=== PATIENT | female | born 1990 | race Caucasian/White ===

== ENCOUNTER 2018-04-14 23:51 | Inpatient (IN) ==
[2018-04-15] MEDS ORDERED: fentaNYL Citrate Inj 100 MCG/2 ML Ampul IV.PUSH PRN ×2 (00:41)
[2018-04-15] MEDS ORDERED: Sodium Chlor 0.9% Inj 500 ML IV.SIG PRN (00:41)
[2018-04-15] MEDS ORDERED: Sod Chloride 0.9% Inj 1,000 ML IV.CONT PRN (00:41)
[2018-04-15] MEDS ORDERED: Oxytocin 30 Units/500ml Premix 30 UNITS/500 ML BAG IV.SIG ONE (00:41)
[2018-04-15] MEDS ORDERED: Naloxone Inj 0.4 MG/ML Vial IV.PUSH PRN ×2 (00:41→14:17)
[2018-04-15] MEDS ORDERED: Oxytocin 30 Units/500ml Premix 30 UNITS/500 ML BAG IV.CONT PRN ×2 (00:42→14:17)
[2018-04-15] MEDS ORDERED: Citric Acid/Sodium Citrate Liq 30 ML UDC PO SCH (00:45)
--- NOTE | 2018-04-15 00:50 | ED ---
History of Present Illness Primary Care Physician: Eliana Eng MD Subpoena Server Dr. Schultz Chief Complaint: I broke my water History of Present Illness: 27-year-old at 40 weeks today ( EDC 04/15/18 ) presents complaining of ruptured membranes. GBS negative. Seen earlier in triage for contractions. Uneventful to date. Previously scheduled for induction on 04/16. Weeks Gestation:: 40 Para: 0 : 1 - Inpatient Certification I certify that the inpatient services were ordered in accordance with Medicare regulations governing the order. This includes certification that hospital inpatient services are reasonable and necessary and in the case of services not specified as inpatient-only under 42 CFR 419.22(n), that they are appropriately provided as inpatient services in accordance to with the 2-midnight benchmark under 43 CFR 412.3(e) Estimated Total Length of Stay (Days): 2 Plans for Post Hospital Care: Home Review of Systems All other systems reviewed negative except as stated in HPI PMFSH - Travel History Recent Travel in the [place] Within the Last 8 Weeks: No Recent Travel Out of the Country Within the Last 8 Weeks: No - Immunization History Hx Influenza Vaccine This Season: Yes Medications and Allergies Active Medications: Active Medications Citric Acid/Sodium Citrate (Sodium Citrate/Citric Acid Liq) 30 ml PO [employer]ER EDWIN Stop: 04/19/18 00:44 Fentanyl Citrate (Fentanyl Inj) 50 mcg IV.PUSH Q1H PRN PRN Reason: Pain Scale 3 - 5 Fentanyl Citrate (Fentanyl Inj) 100 mcg IV.PUSH Q1H PRN PRN Reason: PAIN SCALE 6 TO 10 Lactated Ringer's (Lr 1000 Ml Inj) 1,000 mls @ 125 mls/hr IV.CONT .Q8H [facility] Sodium Chloride (Ns Inj) 500 mls @ 1,000 mls/hr IV.SIG UNSCH PRN PRN Reason: SEE LABEL COMMENTS Lidocaine HCl (Xylocaine 1% Inj) 0.1 ml I-DERMAL PRN PRN PRN Reason: For IV start Stop: 04/18/18 00:40 Lidocaine HCl (Xylocaine 1% Inj) 10 ml INFILTRATN PRN PRN PRN Reason: For episiotomy repair Stop: 04/17/18 00:40 Mineral Oil (Muri-Lube Oil) 10 ml TOPICAL PRN PRN PRN Reason: PRN perineal massage Naloxone HCl (Narcan Inj) 0.1 mg IV.PUSH Q2M PRN PRN Reason: for opiate reversal Allergies Allergy/AdvReac Type Severity Reaction Status Date / Time No Known Allergies Allergy Verified 04/15/18 00:17 Home Medications Medication Instructions Recorded Confirmed Type [id number] fumarate-FA 1 tab PO DAILY 04/15/18 04/15/18 History [] ferrous sulfate [Iron (ferrous 325 mg PO DAILY 04/15/18 04/15/18 History sulfate)] Exam Vital signs: Vital Signs 04/15/18 00:10 Temperature 98.1 F Pulse Rate 105 H Respiratory Rate 18 Blood Pressure 111/64 Intake & Output 04/14/18 04/14/18 04/15/18 06:59 18:59 06:59 Weight 84.368 kg Narrative: GENERAL: Well-nourished, well-developed patient. SKIN: Warm and dry. HEAD: Normocephalic and atraumatic. EYES: No scleral icterus. No injection or drainage. ENT: No nasal drainage noted. Mucous membranes pink. Airway patent. NECK: Supple, trachea midline. No JVD. CARDIOVASCULAR: Regular rate and rhythm without murmurs, gallops, or rubs. RESPIRATORY: Breath sounds equal bilaterally. No accessory muscle use. BREASTS: Bilateral exam showed no masses , no retractions, no nipple discharge. ABDOMEN/GI: Abdomen soft, non-tender, bowel sounds present, no rebound, no guarding Gravid to 40 weeks size Fundal Height: 39 GENITOURINARY: External Genitalia: intact and normal in appearance BUS glands: Unremarkable Cervix: Soft Dilatation: 2-3 Effacement: 80% Station: -1 Presentation: Vertex Membranes: Grossly ruptured Uterine Contractions: Every 5 FHT's: Category: 1 Variability: Moderate EXTREMITIES: No cyanosis or edema. BACK: Nontender without obvious deformity. No CVA tenderness. NEUROLOGICAL: Awake and alert. Motor and sensory grossly within normal limits. Normal speech. Assessment and Plan - Diagnosis (1) Leakage of amniotic fluid Code(s): O42.90 - Premature rupture of membranes, unspecified as to length of time between rupture and onset of labor, unspecified weeks of gestation Status : Acute (2) 40 weeks gestation of Code(s): Z3A.40 - 40 weeks gestation of Status: Acute - Plan Admit Commence Augmentin of labor Discussed with Dr. Schultz Discharge Plan - Discharge Disposition Patient Disposition: ED Admit(ED Internal Use Only) - Discharge Condition Condition: Good - Physicians Team ED Provider: Daphney Sdidiqui Primary Care Provider: Eliana Eng
--- NOTE | 2018-04-15 00:53 | P.HPOB ---
[facility] Record Number: [id number] Date of : 86 Patient Status: Inpatient Attending Provider: Sony Schultz Date: 04/15/18 00:44 Initialization Date: 04/15/18 00:44 History of Present Illness Primary Care Physician: Eliana Eng MD Statistical Consultant Dr. Schultz Chief Complaint: I broke my water History of Present Illness: 27-year-old at 40 weeks today ( EDC 04/15/18 ) presents complaining of ruptured membranes. GBS negative. Seen earlier in triage for contractions. Uneventful to date. Previously scheduled for induction on 04/16. Weeks Gestation:: 40 Para: 0 : 1 - Inpatient Certification I certify that the inpatient services were ordered in accordance with Medicare regulations governing the order. This includes certification that hospital inpatient services are reasonable and necessary and in the case of services not specified as inpatient-only under 42 CFR 419.22(n), that they are appropriately provided as inpatient services in accordance to with the 2-midnight benchmark under 43 CFR 412.3(e) Estimated Total Length of Stay (Days): 2 Plans for Post Hospital Care: Home Review of Systems All other systems reviewed negative except as stated in HPI PMFSH - Travel History Recent Travel in the [place] Within the Last 8 Weeks: No Recent Travel Out of the Country Within the Last 8 Weeks: No - Immunization History Hx Influenza Vaccine This Season: Yes Medications and Allergies Active Medications: Active Medications Citric Acid/Sodium Citrate (Sodium Citrate/Citric Acid Liq) 30 ml PO [employer]ER EDWIN Stop: 04/19/18 00:44 Fentanyl Citrate (Fentanyl Inj) 50 mcg IV.PUSH Q1H PRN PRN Reason: Pain Scale 3 - 5 Fentanyl Citrate (Fentanyl Inj) 100 mcg IV.PUSH Q1H PRN PRN Reason: PAIN SCALE 6 TO 10 Lactated Ringer's (Lr 1000 Ml Inj) 1,000 mls @ 125 mls/hr IV.CONT .Q8H EDWIN Sodium Chloride (Ns Inj) 500 mls @ 1,000 mls/hr IV.SIG UNSCH PRN PRN Reason: SEE LABEL COMMENTS Lidocaine HCl (Xylocaine 1% Inj) 0.1 ml I-DERMAL PRN PRN PRN Reason: For IV start Stop: 04/18/18 00:40 Lidocaine HCl (Xylocaine 1% Inj) 10 ml INFILTRATN PRN PRN PRN Reason: For episiotomy repair Stop: 04/17/18 00:40 Mineral Oil (Muri-Lube Oil) 10 ml TOPICAL PRN PRN PRN Reason: PRN perineal massage Naloxone HCl (Narcan Inj) 0.1 mg IV.PUSH Q2M PRN PRN Reason: for opiate reversal Allergies Allergy/AdvReac Type Severity Reaction Status Date / Time No Known Allergies Allergy Verified 04/15/18 00:17 Home Medications Medication Instructions Recorded Confirmed Type [id number] fumarate-FA 1 tab PO DAILY 04/15/18 04/15/18 History [] ferrous sulfate [Iron (ferrous 325 mg PO DAILY 04/15/18 04/15/18 History sulfate)] Exam Vital signs: Vital Signs 04/15/18 00:10 Temperature 98.1 F Pulse Rate 105 H Respiratory Rate 18 Blood Pressure 111/64 Intake & Output 04/14/18 04/14/18 04/15/18 06:59 18:59 06:59 Weight 84.368 kg Narrative: GENERAL: Well-nourished, well-developed patient. SKIN: Warm and dry. HEAD: Normocephalic and atraumatic. EYES: No scleral icterus. No injection or drainage. ENT: No nasal drainage noted. Mucous membranes pink. Airway patent. NECK: Supple, trachea midline. No JVD. CARDIOVASCULAR: Regular rate and rhythm without murmurs, gallops, or rubs. RESPIRATORY: Breath sounds equal bilaterally. No accessory muscle use. BREASTS: Bilateral exam showed no masses , no retractions, no nipple discharge. ABDOMEN/GI: Abdomen soft, non-tender, bowel sounds present, no rebound, no guarding Gravid to 40 weeks size Fundal Height: 39 GENITOURINARY: External Genitalia: intact and normal in appearance BUS glands: Unremarkable Cervix: Soft Dilatation: 2-3 Effacement: 80% Station: -1 Presentation: Vertex Membranes: Grossly ruptured Uterine Contractions: Every 5 FHT's: Category: 1 Variability: Moderate EXTREMITIES: No cyanosis or edema. BACK: Nontender without obvious deformity. No CVA tenderness. NEUROLOGICAL: Awake and alert. Motor and sensory grossly within normal limits. Normal speech. Assessment and Plan - Diagnosis (1) Leakage of amniotic fluid Code(s): O42.90 - Premature rupture of membranes, unspecified as to length of time between rupture and onset of labor, unspecified weeks of gestation Status : Acute (2) 40 weeks gestation of Code(s): Z3A.40 - 40 weeks gestation of Status: Acute - Plan Admit Commence Augmentin of labor Discussed with Dr. Schultz
[2018-04-15 00:58] LABS: Baso # (Auto) 0.1 th/mm3 (0.0-0.2); Baso % (Auto) 0.7 % (0.0-2.0); Eos # (Auto) 0.1 th/mm3 (0.0-0.4); Eos % (Auto) 0.4 % (0.0-4.0); Hematocrit 35.7 % (35.0-46.0); Hemoglobin 11.6 gm/dL (11.6-15.3); Lymph # (Auto) 2.9 th/mm3 (1.0-4.8); Lymph % (Auto) 23.4 % (9.0-44.0); Mean Corpuscular HGB Conc 32.5 % (32.0-36.0); Mean Corpuscular Volume 89.2 fL (80.0-100.0); Mean Platelet Volume 10.2 fL (7.0-11.0); Mono # (Auto) 1.1 th/mm3 (0.0-0.9); Mono % (Auto) 8.6 % (0.0-8.0); Neut # (Auto) 8.3 th/mm3 (1.8-7.7); Neut % (Auto) 66.9 % (16.0-70.0); Platelet Count 166 th/mm3 (150-450); Red Cell Distribution Width 14.7 % (11.6-17.2); White Blood Count 12.5 th/mm3 (4.0-11.0)
[2018-04-15 01:06] LABS: Bacteria,Urine Few /hpf; Bilirubin,Urine Negative (Negative); Clarity,Urine Cloudy (Clear); Color,Urine Yellow (Yellw/Straw); Glucose,Urine (UA) Negative (Negative); Hyaline Casts,Urine 1 /lpf (0-3); Leukocyte Esterase,Urine Large (Negative); Nitrite,Urine Negative (Negative); Specific Gravity,Urine 1.006 (1.002-1.035); Squamous Epithelial Cell,Urine 17 /hpf (0-5)
[2018-04-15] MEDS ORDERED: fentaNYL 2MCG-Bupiv 0.125% Epi 150 ML EPIDURAL ONE (02:07)
[2018-04-15] MEDS ORDERED: fentaNYL 2MCG-Bupiv 0.125% Epi 150 ML EPIDURAL PRN (03:17)
[2018-04-15] MEDS ORDERED: fentaNYL Citrate Inj 100 MCG/2 ML Ampul EPIDURAL ONE (03:17)
--- NOTE | 2018-04-15 07:33 | P.OBLABOR ---
Subjective Interval history: doing well. She is laboring and comfortable with epidural Objective Vital Signs: Vital Signs - 8 hr 04/15/18 00:10 04/15/18 01:07 04/15/18 01:31 Temperature 98.1 F Pulse Rate 105 H 69 57 L Respiratory Rate 18 18 Blood Pressure 111/64 103/63 96/50 L 04/15/18 02:03 04/15/18 02:43 04/15/18 02:45 Temperature 97.5 F L Pulse Rate 59 L 74 Respiratory Rate Blood Pressure 125/68 105/57 L 04/15/18 02:54 04/15/18 02:57 04/15/18 02:58 Temperature Pulse Rate 78 76 Respiratory Rate 18 Blood Pressure 92/37 L 93/40 L 04/15/18 03:00 04/15/18 03:15 04/15/18 03:30 Temperature Pulse Rate 93 H 94 H Respiratory Rate 18 Blood Pressure 96/43 L 96/43 L 04/15/18 03:31 04/15/18 03:49 04/15/18 04:00 Temperature Pulse Rate 87 74 91 H Respiratory Rate Blood Pressure 108/42 L 87/58 L 94/43 L 04/15/18 04:05 04/15/18 04:10 04/15/18 04:35 Temperature Pulse Rate 117 H 98 H 103 H Respiratory Rate Blood Pressure 117/63 109/58 L 04/15/18 04:39 04/15/18 04:45 04/15/18 05:00 Temperature 98.7 F Pulse Rate 107 H 101 H Respiratory Rate 18 Blood Pressure 115/62 114/68 04/15/18 05:03 04/15/18 05:15 04/15/18 05:30 Temperature Pulse Rate 210 H 101 H Respiratory Rate 18 Blood Pressure 109/56 L 107/54 L 04/15/18 05:45 04/15/18 06:00 04/15/18 06:09 Temperature 98.8 F Pulse Rate 103 H 101 H Respiratory Rate 18 Blood Pressure 106/56 L 103/57 L 04/15/18 06:15 04/15/18 06:30 04/15/18 06:45 Temperature Pulse Rate 88 80 78 Respiratory Rate Blood Pressure 113/54 L 109/56 L 102/56 L 04/15/18 07:00 04/15/18 07:02 Temperature Pulse Rate 93 H 100 H Respiratory Rate 18 Blood Pressure 91/40 L Objective: Pelvic Exam: Cervix: [-] Dilatation: 6 Effacement: 90 Station: [-] Presentation: vtx Membranes: ruptured Uterine Contractions: Q3 FHT's: Category: 1 Baseline: [-] Reactive: [-] Variability: [-] Decels: [-] Patient Started Active Labor: Yes Active Labor Start Date: 04/14/18 Active Labor Start Time: 23:30 Medical Induction of Labor: No Artificial Rupture of Membrane: No Assessment and Plan - Diagnosis (1) 40 weeks gestation of Code(s): Z3A.40 - 40 weeks gestation of Status: Acute (2) Leakage of amniotic fluid Code(s): O42.90 - Premature rupture of membranes, unspecified as to length of time between rupture and onset of labor, unspecified weeks of gestation Status : Acute - Plan IUPC placed and will increase pitocin
[2018-04-15] MEDS ORDERED: Bupivacaine PF 0.25% Inj 10 ML Vial ONE (10:52)
[2018-04-15] MEDS ORDERED: Lidocaine 1% Inj 50 ML Vial ONE (12:06)
--- NOTE | 2018-04-15 13:05 | P.OBLABOR ---
Subjective Interval history: doing well Objective Vital Signs: Vital Signs - 8 hr 04/15/18 05:15 04/15/18 05:30 04/15/18 05:45 Temperature Pulse Rate 210 H 101 H 103 H Respiratory Rate Blood Pressure 109/56 L 107/54 L 106/56 L 04/15/18 06:00 04/15/18 06:09 04/15/18 06:15 Temperature 98.8 F Pulse Rate 101 H 88 Respiratory Rate 18 Blood Pressure 103/57 L 113/54 L 04/15/18 06:30 04/15/18 06:45 04/15/18 07:00 Temperature Pulse Rate 80 78 93 H Respiratory Rate 18 Blood Pressure 109/56 L 102/56 L 91/40 L 04/15/18 07:02 04/15/18 07:15 04/15/18 07:28 Temperature 99.4 F Pulse Rate 100 H 109 H Respiratory Rate 16 Blood Pressure 116/60 04/15/18 07:30 04/15/18 07:45 04/15/18 08:00 Temperature Pulse Rate 91 H 91 H 91 H Respiratory Rate Blood Pressure 112/69 115/71 109/60 04/15/18 08:15 04/15/18 08:30 04/15/18 08:45 Temperature 99.8 F H Pulse Rate 105 H 106 H 107 H Respiratory Rate Blood Pressure 107/64 100/60 102/63 04/15/18 08:58 04/15/18 09:00 04/15/18 09:15 Temperature Pulse Rate 94 H 92 H Respiratory Rate 16 Blood Pressure 116/70 126/75 04/15/18 09:30 04/15/18 09:33 04/15/18 09:45 Temperature 99.6 F Pulse Rate 86 85 Respiratory Rate 16 Blood Pressure 113/64 110/58 L 04/15/18 10:01 04/15/18 10:30 04/15/18 10:45 Temperature 98.8 F Pulse Rate 96 H 121 H Respiratory Rate 16 Blood Pressure 113/66 108/86 04/15/18 10:59 04/15/18 11:01 04/15/18 11:15 Temperature Pulse Rate 82 102 H Respiratory Rate 20 Blood Pressure 118/80 122/78 04/15/18 11:31 04/15/18 12:01 04/15/18 12:30 Temperature 98.7 F Pulse Rate 79 188 H 85 Respiratory Rate 20 Blood Pressure 115/76 99/79 L 113/65 Objective: Pelvic Exam: Cervix: [-] Dilatation: 10 Effacement: 100 Station: [-] Presentation:vtx Membranes: SROM Uterine Contractions: q3 FHT's: Category: 1 Baseline: [-] Reactive: [-] Variability: [-] Decels: [-] Assessment and Plan - Diagnosis (1) 40 weeks gestation of Code(s): Z3A.40 - 40 weeks gestation of Status: Acute (2) Leakage of amniotic fluid Code(s): O42.90 - Premature rupture of membranes, unspecified as to length of time between rupture and onset of labor, unspecified weeks of gestation Status : Acute - Plan IUPC placed and will increase pitocin
[2018-04-15] MEDS ORDERED: Witch Hazel 50%/Glyderin 12.5% 40 Pad Jar RECTAL PRN (14:17)
[2018-04-15] MEDS ORDERED: Bisacodyl 10 MG Supp RECTAL PRN (14:17)
[2018-04-15] MEDS ORDERED: Benzocaine 20% Top Spray 60 ML Can TOPICAL PRN (14:17)
[2018-04-15] MEDS ORDERED: Zolpidem Tartrate 5 MG Tablet PO PRN (14:17)
--- NOTE | 2018-04-15 14:17 | P.OBDELI ---
Weeks Gestation: 40 Patient Started Active Labor: Yes Artificial Rupture of Membrane: No Anesthesia: Epidural Episiotomy: none Vaginal Delivery: Normal, Spontaneous Presentation: Occiput anterior Nuchal Cord: None Delayed Cord Clamping (45 sec): Yes Placenta: Spontaneous delivery, Intact, 3 vessel cord Laceration: Vaginal, Perineal, 2 deg Repair: Chromic running : Female, Single
[2018-04-15] MEDS ORDERED: Diphtheria/Tetanus/Pertussis Vaccine Inj 0.5 ML Syringe IM ONE (16:00)
[2018-04-15] MEDS ORDERED: Measles/Mumps/Rubella Vaccine Inj 0.5 ML Vial SQ ONE (16:00)
[2018-04-15] MEDS: Senna/Docusate Sodium 8.6/50 MG Tablet PO SCH (22:07)
[2018-04-16] MEDS: Acetaminophen 325 MG Tablet PO PRN ×4 (02:17→18:54)
[2018-04-16] MEDS: Senna/Docusate Sodium 8.6/50 MG Tablet PO SCH ×2 (10:41→21:00)
--- NOTE | 2018-04-16 14:12 | P.PNOB ---
Subjective Post day: 1 Interval history: doing well Objective Vital Signs/I&O: Vital Signs 04/15/18 14:15 04/15/18 14:27 04/15/18 14:30 Temperature Pulse Rate 98 H 90 85 Respiratory Rate 16 Blood Pressure 116/70 116/63 113/73 04/15/18 14:35 04/15/18 14:41 04/15/18 14:46 Temperature Pulse Rate 80 80 72 Respiratory Rate 14 Blood Pressure 107/58 L 04/15/18 15:00 04/15/18 15:01 04/15/18 15:15 Temperature 99.0 F Pulse Rate 76 Respiratory Rate 16 18 Blood Pressure 107/60 04/15/18 15:40 04/16/18 09:40 Temperature 99.1 F 97.9 F Pulse Rate 67 80 Respiratory Rate 18 16 Blood Pressure 108/55 L 114/66 Result Diagrams: 04/15/18 00:39 Objective Remarks: GENERAL: Well-nourished, well-developed patient. ABDOMEN/GI: Abdomen soft, non-tender. Fundus: Firm, non-tender at umbilicus. GENITOURINARY: Light to moderate bleeding. EXTREMITIES: No cyanosis or edema, non-tender, without signs of DVT. Medications and IVs: Active Medications Acetaminophen (Tylenol) 650 mg PO Q4H PRN PRN Reason: PAIN SCALE 1 TO 2 Last Admin: 04/16/18 10:41 Dose: 650 mg Al Hydroxide/Mg Hydroxide (Milk Of Raquel Cabrales) 30 ml PO Q12H PRN PRN Reason: Mild Constipation Benzocaine (Americaine 20% Top [place]) 1 spray TOPICAL Q4H PRN PRN Reason: For Perineum Discomfort Last Admin: 04/15/18 15:17 Dose: 1 spray Bisacodyl (Dulcolax Supp) 10 mg RECTAL DAILY PRN PRN Reason: SEVERE CONSITIPATION Oxytocin (Pitocin 30 Units/Ns 500 Ml Premix) 30 units in 500 mls @ 2 mls/hr IV.CONT TITRATE PRN; Protocol PRN Reason: For induction of labor Fentanyl/Bupivacaine/Sodium Chlor (Fentanyl 2 Mcg-Bupiv 0.125% Epi) 150 mls @ 12 mls/hr EPIDURAL PRN PRN PRN Reason: for Labor Pain Last Admin: 04/15/18 03:41 Dose: 12 mls/hr Oxytocin (Pitocin 30 Units/Ns 500 Ml Premix) 30 units in 500 mls @ 100 mls/hr IV.CONT UNSCH PRN PRN Reason: Heavy bleeding Ibuprofen (Motrin) 800 mg PO Q8H PRN PRN Reason: For Cramping Last Admin: 04/16/18 06:13 Dose: 800 mg Lactulose (Lactulose Liq) 30 ml PO DAILY PRN PRN Reason: SEVERE CONSITIPATION Naloxone HCl (Narcan Inj) 0.1 mg IV.PUSH Q2M PRN PRN Reason: for opiate reversal Ondansetron HCl (Zofran Odt) 4 mg PO Q6H PRN PRN Reason: NAUSEA OR VOMITING Oxycodone/Acetaminophen (Percocet 5/325 Mg) 2 tab PO Q4H PRN PRN Reason: PAIN SCALE 6 TO 10 Oxycodone/Acetaminophen (Percocet 5/325 Mg) 1 tab PO Q4H PRN PRN Reason: PAIN SCALE 3 TO 5 Senna/Docusate Sodium (Vicky-Colace) 1 tab PO BID [facility] Last Admin: 04/16/18 10:41 Dose: 1 tab Sennosides (Senokot) 17.2 mg PO Q12H PRN PRN Reason: Moderate Constipation Sodium Chloride (Ns Flush) 2 ml IV.FLUSH BID [facility] Last Admin: 04/16/18 10:41 Dose: 2 ml Sodium Chloride (Ns Flush) 2 ml IV.FLUSH UNSCH PRN PRN Reason: FLUSH AFTER USING IV ACCESS Witch Nichole/Glycerin (Tucks Pads) 1 applicatio RECTAL QID PRN PRN Reason: HEMORRHOIDS Last Admin: 04/16/18 02:18 Dose: 1 applicatio Zolpidem Tartrate (Ambien) 5 mg PO HS PRN PRN Reason: SLEEP Assessment and Plan - Diagnosis (1) 40 weeks gestation of Code(s): Z3A.40 - 40 weeks gestation of Status: Acute (2) Leakage of amniotic fluid Code(s): O42.90 - Premature rupture of membranes, unspecified as to length of time between rupture and onset of labor, unspecified weeks of gestation Status : Acute - Plan IUPC placed and will increase pitocin
[2018-04-17] MEDS: Acetaminophen 325 MG Tablet PO PRN ×2 (03:22→09:06)
--- NOTE | 2018-04-17 08:54 | P.PNOB ---
Subjective Post day: 2 Interval history: doing well dc home Objective Vital Signs/I&O: Vital Signs 04/16/18 09:40 04/16/18 19:55 04/17/18 07:55 Temperature 97.9 F 98.4 F 98.0 F Pulse Rate 80 81 72 Respiratory Rate 16 18 18 Blood Pressure 114/66 109/66 120/69 Result Diagrams: 04/15/18 00:39 Objective Remarks: GENERAL: Well-nourished, well-developed patient. CARDIOVASCULAR: Regular rate and rhythm without murmurs, gallops, or rubs. RESPIRATORY: Breath sounds equal bilaterally. No accessory muscle use. ABDOMEN/GI: Abdomen soft, non-tender. Fundus: Firm, non-tender at umbilicus. GENITOURINARY: Light to moderate bleeding. EXTREMITIES: No cyanosis or edema, non-tender, without signs of DVT. Medications and IVs: Active Medications Acetaminophen (Tylenol) 650 mg PO Q4H PRN PRN Reason: PAIN SCALE 1 TO 2 Last Admin: 04/17/18 03:22 Dose: 650 mg Al Hydroxide/Mg Hydroxide (Milk Of Magnesia Liq) 30 ml PO Q12H PRN PRN Reason: Mild Constipation Benzocaine (Americaine 20% Top [place]) 1 spray TOPICAL Q4H PRN PRN Reason: For Perineum Discomfort Last Admin: 04/15/18 15:17 Dose: 1 spray Bisacodyl (Dulcolax Supp) 10 mg RECTAL DAILY PRN PRN Reason: SEVERE CONSITIPATION Oxytocin (Pitocin 30 Units/Ns 500 Ml Premix) 30 units in 500 mls @ 2 mls/hr IV.CONT TITRATE PRN; Protocol PRN Reason: For induction of labor Fentanyl/Bupivacaine/Sodium Chlor (Fentanyl 2 Mcg-Bupiv 0.125% Epi) 150 mls @ 12 mls/hr EPIDURAL PRN PRN PRN Reason: for Labor Pain Last Admin: 04/15/18 03:41 Dose: 12 mls/hr Oxytocin (Pitocin 30 Units/Ns 500 Ml Premix) 30 units in 500 mls @ 100 mls/hr IV.CONT UNSCH PRN PRN Reason: Heavy bleeding Ibuprofen (Motrin) 800 mg PO Q8H PRN PRN Reason: For Cramping Last Admin: 04/17/18 03:22 Dose: 800 mg Lactulose (Lactulose Liq) 30 ml PO DAILY PRN PRN Reason: SEVERE CONSITIPATION Naloxone HCl (Narcan Inj) 0.1 mg IV.PUSH Q2M PRN PRN Reason: for opiate reversal Ondansetron HCl (Zofran Odt) 4 mg PO Q6H PRN PRN Reason: NAUSEA OR VOMITING Oxycodone/Acetaminophen (Percocet 5/325 Mg) 2 tab PO Q4H PRN PRN Reason: PAIN SCALE 6 TO 10 Oxycodone/Acetaminophen (Percocet 5/325 Mg) 1 tab PO Q4H PRN PRN Reason: PAIN SCALE 3 TO 5 Senna/Docusate Sodium (Vicky-Colace) 1 tab PO BID [facility] Last Admin: 04/16/18 21:00 Dose: Not Given Sennosides (Senokot) 17.2 mg PO Q12H PRN PRN Reason: Moderate Constipation Sodium Chloride (Ns Flush) 2 ml IV.FLUSH BID [facility] Last Admin: 04/17/18 03:24 Dose: Not Given Sodium Chloride (Ns Flush) 2 ml IV.FLUSH UNSCH PRN PRN Reason: FLUSH AFTER USING IV ACCESS Witch Nichole/Glycerin (Tucks Pads) 1 applicatio RECTAL QID PRN PRN Reason: HEMORRHOIDS Last Admin: 04/16/18 02:18 Dose: 1 applicatio Zolpidem Tartrate (Ambien) 5 mg PO HS PRN PRN Reason: SLEEP Assessment and Plan - Diagnosis (1) 40 weeks gestation of Code(s): Z3A.40 - 40 weeks gestation of Status: Acute (2) Leakage of amniotic fluid Code(s): O42.90 - Premature rupture of membranes, unspecified as to length of time between rupture and onset of labor, unspecified weeks of gestation Status : Acute - Plan IUPC placed and will increase pitocin
--- NOTE | 2018-04-17 08:58 | P.DS ---
Date of admission: 04/15/18 00:26 Primary care physician: Eliana Eng MD Brief History from admission: patient came for SROM and delivered on 04/15/2018. Doing well DS: Diagnosis - Discharge Diagnosis (1) 40 weeks gestation of Status: Acute (2) Leakage of amniotic fluid Status: Acute DS: Summary Hospital Course: 04/15/2018, Doing well days of DC home - Time Spent with Patient Total time spent providing and/or coordinating discharge services: Less than 30 minutes Exam Vital signs: Vital Signs 04/16/18 09:40 04/16/18 19:55 04/17/18 07:55 Temperature 97.9 F 98.4 F 98.0 F Pulse Rate 80 81 72 Respiratory Rate 16 18 18 Blood Pressure 114/66 109/66 120/69 - Constitutional no acute distress - Routine Abdominal Exam Present: soft, normoactive bowel sounds Results Procedures completed during hospitalization: vaginal Discharge Plan - Discharge Disposition Patient Disposition: 01 Discharge Home - Discharge Condition Condition: Good - Discharge Order Discharge Orders: Discharge Order (Routine); Ordered 04/17/18 Ordered By: Sony Schultz - Physicians Team Primary Care Provider: Eliana Eng Attending Provider: Sony Schultz
[2018-04-17] MEDS: Senna/Docusate Sodium 8.6/50 MG Tablet PO SCH (09:06)
== END 2018-04-17 11:06 | disposition home or self-care (01) ==
LOC: HOBED 23:51 → H2E 04-15 00:26 → H1EA 04-15 15:29
PROVIDERS: ADMIT Obstetrics & Gynecology; ATTEND Obstetrics & Gynecology